=== PATIENT | female | born 1990 | race African-American/Black ===

== ENCOUNTER 2016-08-11 16:49 | Emergency (ER) | payer OTHER ==
[~2016-08-11] VITALS: Ht 157.5 cm; Wt 71.7 kg
[~2016-08-11 16:49] MED LIST: ACETAMINOPHEN-120 ML PO; ALBUTEROL INHAL17 GM IH; AMOXICILLIN 50500 M1 PO; AZITHROMYCIN 2250 MG PO; CIPROFLOXACIN500 M1 PO; CLARINEX-D 241 EACH PO; CORTISPORIN EY7.5 ML OTIC; DIFLUCAN150 MG PO; DOXYCYCLINE 10100 MG PO; FLAGYL500 MG PO; IBUPROFEN 200200 M1 PO; MEDROL DOSPAK21 TAB PO; NAPROSYN500 MG PO; NOHOMEMEDICATIONS; NORCO 5-325 TA1 EACH PO; PENICILLIN VK500 MG PO; PROMETHAZINE-C120 ML PO; TESSALON200 MG PO
[2016-08-11 16:54] VITALS: BP 137/96
[2016-08-11] MEDS ORDERED: TIZANIDINE HCL4 MG PO (17:04)
== END 2016-08-11 17:20 | disposition home or self-care (01) ==
LOC: ER 16:49
DX: S46.911A Strain of unspecified muscle, fascia and tendon at shoulder and upper arm level, right arm, initial encounter (principal); F17.210 Nicotine dependence, cigarettes, uncomplicated; F10.99 Alcohol use, unspecified with unspecified alcohol-induced disorder; X50.0XXA Overexertion from strenuous movement or load, initial encounter; Y93.89 Activity, other specified; Y92.099 Unspecified place in other non-institutional residence as the place of occurrence of the external cause; Y99.0 Civilian activity done for income or pay

== ENCOUNTER 2018-12-26 15:55 | Emergency (ER) | payer OTHER ==
[~2018-12-26] VITALS: Ht 157.5 cm; Wt 65.8 kg
[2018-12-26 15:58] VITALS: BP 152/74
== END 2018-12-26 16:55 | disposition home or self-care (01) ==
LOC: ER 15:55
DX: S05.02XA Injury of conjunctiva and corneal abrasion without foreign body, left eye, initial encounter (principal); F17.210 Nicotine dependence, cigarettes, uncomplicated; X58.XXXA Exposure to other specified factors, initial encounter; Y93.89 Activity, other specified; Y92.89 Other specified places as the place of occurrence of the external cause; Y99.8 Other external cause status

== ENCOUNTER 2020-07-11 15:53 | Emergency (ER) | payer OTHER ==
[~2020-07-11] VITALS: Ht 157.5 cm; Wt 54.9 kg
[~2020-07-11 15:53] MED LIST changes: +IBUPROFEN 800800 MG PO; +TIZANIDINE HCL4 MG PO
[2020-07-11 17:14] LABS: MCHC 33.1 g/dL (28.0-37.0)
[2020-07-11 17:16] LABS: CALCIUM 9.5 mg/dL (8.5-10.1); CREATININE 0.7 mg/dL (0.6-1.0); POTASSIUM 3.8 mmol/L (3.5-5.1)
[2020-07-11 17:17] LABS: HEMATOCRIT 38.2 % (37.0-47.0); HEMOGLOBIN 12.7 gm/dL (12.0-15.0); MCH 33.8 pg (26.0-34.0); MCV 101.9 fL (80.0-100.0); PLATELET COUNT 317 thou/uL (150-400); RBC 3.75 mil/uL (4.20-5.00); RDW 13.2 % (10.5-14.5); WBC 18.3 thou/uL (4.0-11.0)
[2020-07-11 17:59] LABS: ABSOLUTE NEUTROPHILS 13.4 thou/uL (1.4-8.2)
[2020-07-11 20:20] VITALS: BP 175/106
== END 2020-07-11 20:20 | disposition short-term general hospital (02) ==
LOC: ER 15:53
PROVIDERS: Emergency Medicine
DX: M27.2 Inflammatory conditions of jaws (principal); K04.7 Periapical abscess without sinus; F17.210 Nicotine dependence, cigarettes, uncomplicated; Z79.899 Other long term (current) drug therapy

== ENCOUNTER 2021-07-05 18:28 | Emergency (ER) | payer OTHER ==
[~2021-07-05] VITALS: Ht 177.8 cm; Wt 59.0 kg
[2021-07-05 18:38] VITALS: BP 150/96
[2021-07-05] MEDS ORDERED: CEPHALEXIN500 MG PO (19:34)
== END 2021-07-05 19:30 | disposition home or self-care (01) ==
LOC: ER 18:28
DX: T63.331A Toxic effect of venom of brown recluse spider, accidental (unintentional), initial encounter (principal); F17.210 Nicotine dependence, cigarettes, uncomplicated; Y92.89 Other specified places as the place of occurrence of the external cause